=== PATIENT | female | born 1995 | race Hispanic/Latino ===

== ENCOUNTER 2017-04-15 20:38 | Emergency (ER) | payer MEDICAID, OTHER ==
[2017-04-15] MEDS ORDERED: ACETAMINOPHEN 325 MG TAB ONE (21:40)
== END 2017-04-15 23:08 | disposition home or self-care (01) ==
LOC: EDH 20:38
DX: B00.0 Eczema herpeticum (principal); R50.81 Fever presenting with conditions classified elsewhere
CPT/HCPCS: 87804; 87880